=== PATIENT | male | born 1945 | race Caucasian/White ===

== ENCOUNTER 2021-05-11 14:00 | Outpatient (CLI) | payer MEDICARE, SELFPAY ==
--- NOTE | 2021-05-11 14:14 | XR_ITS ---
WS: [id number] XR hip BI 3-4V wo/w pel [id number] REASON FOR EXAM: OSTEOARTHRITIS FINDINGS: RIGHT HIP: Overall bone density is normal. No focal bony abnormality. Mild/moderate narrowing of the hip joint space with mild osteophytic spurring of the acetabulum with subchondral sclerosis. No soft tissue abnormality. LEFT HIP: Overall bone density is normal. No focal bony abnormality. Mild/moderate narrowing of the hip joint space with mild osteophytic spurring of the acetabulum with subchondral sclerosis. No soft tissue abnormality. XR/XR hip BI 3-4V wo/w pel [id number] IMPRESSION: Mild/moderate changes of osteoarthritis as above.
--- NOTE | 2021-05-11 14:15 | XR_ITS ---
WS: [id number] XR knee RT 3V* [id number] REASON FOR EXAM: PAIN IN RIGHT KNEE FINDINGS: Overall than density is within normal limits. No focal bone lesion. Mild/moderate narrowing of the medial knee joint space with subchondral sclerosis in the subarticular tibia. Bony spurring of the medial femoral condyle likely related to the medial collateral ligament. The lateral knee joint spaces are relatively well-preserved. There is mild narrowing of the patellofemoral joint space with osteophytic spurring of the patellar m argins. Subchondral sclerosis in the patella. No loose body identified. No soft tissue abnormality. XR/XR knee RT 3V* [id number] IMPRESSION: Osteoarthropathy in the right knee most prominently in the medial knee joint sp harjinder.
== END 2021-05-11 14:01 | disposition home or self-care (01) ==
PROVIDERS: PCP Family Medicine; Visit Provider Family Medicine
DX: M25.551 Pain in right hip (principal); M25.561 Pain in right knee; M89.48 Other hypertrophic osteoarthropathy, other site
CPT/HCPCS: 73522; 73562

== ENCOUNTER 2022-07-08 03:00 | Emergency (ER) | payer MEDICARE, OTHER, SELFPAY ==
[2022-07-08 03:03] VITALS: BP 159/81; PULSE 64; RESP 18; TEMP 36.2; O2SAT 96; BMI 32.8
--- NOTE | 2022-07-08 03:08 | CTR_ITS ---
PROCEDURE INFORMATION: Exam: CT Abdomen And Pelvis With Contrast Exam date and time: 07/08/2022 4:18 AM Age: 76 years old Clinical indication: Nausea and vomiting; Abdominal pain; Prior surgery; Surgery type: Prostate seeds; Patient HX: C/O periumbilical pain with n/v. TECHNIQUE: Imaging protocol: Computed tomography of the abdomen and pelvis with contrast. Radiation optimization: All CT scans at this facility use at least one of these dose optimization techniques: automated exposure control; mA and/or kV adjustment per patient size (includes targeted exams where dose is matched to clinical indication); or iterative reconstruction. Contrast material: OMNI 350; Contrast volume: 80 ml; Contrast route: INTRAVENOUS (IV); COMPARISON: No relevant prior studies available. RADIATION DOSE METRICS: Total DLP (mGy-cm): 1006.23 FINDINGS: Lungs: Possible small area of atelectasis or pneumonitis in the lower left lingula. No pleural fluid. Diaphragm: Small hiatal hernia. Liver: Unremarkable. Gallbladder and bile ducts: The gallbladder is partially contracted. No visible gallstones by CT. Ultrasound would be more sensitive for detecting gallstones, if clinically needed. No biliary tree dilation. Pancreas: Unremarkable. Spleen: Unremarkable. Adrenal glands: Unremarkable. Kidneys and ureters: Mild to moderate left perinephric stranding and fluid. There is delayed/decreased concentration of contrast by the left kidney. Mild left hydronephrosis and hydroureter. There is a 3 mm distal left ureteral calculus, about 3 cm from UVJ. No visible/definite intrarenal calculus. Couple of probably benign cysts in both kidneys, largest in the right lower pole measures up to 3.5 cm. No right hydronephrosis or visible right ureteral calculus. Stomach and bowel: No significant bowel distention. There are no CT findings to strongly suggest diverticulitis. Appendix: The appendix is visualized and appears normal. Intraperitoneal space: No free intraperitoneal air, or ascites. Vasculature: Moderate aortic and other vascular calcification. No evidence for abdominal aortic aneurysm. Lymph nodes: No retroperitoneal adenopathy. Urinary bladder: No visible calculus in the urinary bladder. Possibly some mild diffuse urinary bladder wall thickening, with slight indistinctness of the bladder wall. Evaluation is somewhat limited, as the bladder is not well distended. This may be related to the prostate enlargement. While nonspecific, this could also indicate evidence for cystitis. Please correlate clinically. Reproductive: Prostate enlargement with transverse diameter of 4.4 cm. Apparent radiation implants in the prostate gland. Bones/joints: Mild to moderate degenerative/arthritic changes throughout the lumbar spine. Soft tissues: Small umbilical hernia, containing only fat. CT/CT abdomen pelvis w con* [id number] IMPRESSION: 1. 3 mm distal left ureteral calculus, see additional details above. 2. Mild left hydronephrosis and hydroureter. 3. Prostate enlargement and suspected urinary bladder wall thickening, see above details. 4. Normal appendix. 5. No free air or bowel distention. No evidence for bowel obstruction. 6. Small left lower lung opacity, see above. 7. Other findings discussed above. COMMENTS: Consistent with the [employer]'s Incidental Findings Committee white paper (J Am Emma Radiol 2018): Any incidental renal lesion less than 1 cm or classified as too small to characterize, or any incidental cystic renal lesion characterized as simple-appearing, is likely benign. No follow-up imaging is recommended for these lesions per consensus recommendations based on imaging criteria.
[2022-07-08] MEDS: ketorolac 30 mg/mL INJ 15 MG IVP (03:30)
[2022-07-08 03:35] LABS: Basophils # 0.1 10^3/uL (0.0-0.1); Basophils % 0.5 %; Eosinophils # 0.1 10^3/uL (0.0-0.8); Eosinophils % 0.6 %; Hematocrit 46.4 % (42.0-52.0); Hemoglobin 15.5 g/dL (11.7-16.6); Lymphocytes # 1.6 10^3/uL (0.8-4.8); Lymphocytes % 11.8 %; Mean Corpuscular HGB Conc 33.4 g/dL (30.0-36.0); Mean Corpuscular Hemoglobin 31.9 pg (28.0-34.0); Mean Corpuscular Volume 95.5 fl (80-94); Monocytes # 0.9 10^3/uL (0.2-0.9); Monocytes % 6.3 %; Neutrophils # 11.09 10^3/uL (1.8-7.7); Neutrophils % 80.5 %; Nucleated Red Blood Cells % 0 %; Platelet Count 234 10^3/cmm (130-400); Red Blood Count 4.86 10^6/uL (4.1-5.3); Red Cell Distribution Width 14.7 % (12.1-15.1); White Blood Count 13.8 10^3/uL (4.0-10.0)
--- NOTE | 2022-07-08 03:47 | ED_ITS ---
Documented by User: Jasbir Albright DO 07/24/22 13:37 HPI - Abdominal Pain General: Chief Complaint: Abdominal Pain Stated Complaint: abd pain Time Seen by Provider: 07/08/22 03:20 History of Present Illness: 76-year-old male presenting today with flank pain radiating into his groin. Initially with flank pain that is moved to his left lower quadrant pain. He denies nausea or vomiting. Denies diarrhea. He has no prior history of similar. No significant surgical history. He denies dysuria or polyuria. He denies hematuria Review of Systems General: Reports: 10 or more systems reviewed and unremarkable except in HPI and below PFSH ED PFSH: Medical History History of DVT (deep vein thrombosis) Social History (Updated 06/02/22 @ 09:58 by Radha Arellano LPN) Smoking and tobacco status: former smoker Alcohol intake: never Adopted: No Caregiver/support person: No Lives independently: No Household members: spouse Marital status: service: No Current occupational status: retired Sexually active: Yes Current gender identity: Male Physical Exam Const: COMMON NORMALS: no acute distress, patient oriented x3 and alert GENERAL APPEARANCE: cooperative ORIENTATION/CONSCIOUSNESS: Yes awake, Yes oriented to person, Yes oriented to place and Yes oriented to time HENMT: COMMON NORMALS: normocephalic, atraumatic, external ears normal, Normal external nose present and moist oral mucous membranes HEAD & SCALP: normal to inspection, normocephalic and atraumatic NOSE: Normal external nose present GENERAL EAR: hearing grossly impaired EXTERNAL EAR: Yes external ears normal Eye: COMMON NORMALS: Equal, round and reactive pupils present, EOMs intact bilaterally, conjunctivae normal and no scleral icterus GENERAL EYE: appearance normal, both eyes and all related structures EYELID: eyelids normal CONJUNCTIVA: Yes conjunctivae normal SCLERA: sclerae normal PUPIL: Yes Equal, round and reactive pupils present Neck/C-Spine: COMMON NORMALS: full ROM, supple and no JVD GENERAL: Yes normal visual inspection Lymph: LYMPHATIC: no lymphadenopathy noted and no lymphedema noted Chest: COMMONS NORMALS: normal inspection of the chest Resp: COMMON NORMALS: normal respiratory effort, No retractions and No use of accessory muscles Cardio: COMMON NORMALS: no JVD, regular rate and regular rhythm RATE: regular rate RHYTHM: regular rhythm GI: COMMON NORMALS: Normal to inspection, nondistended, normoactive bowel sounds present : COMMON NORMALS: Yes no CVA tenderness BLADDER/KIDNEY EXAM: Yes no CVA tenderness Back/Pelvis: COMMON NORMALS: no CVA tenderness and thoracic and lumbar spine normal to inspection Extremity: COMMON NORMALS: normal to inspection, full ROM and capillary refill normal GENERAL: Yes normal exam except as noted Neuro: COMMON NORMALS: patient oriented x3, CN's II-XII intact bilaterally, moves all extremities, no focal motor deficits, no sensory deficits noted and gait normal SENSORIUM/ORIENTATION: Yes alert, Yes oriented to person, Yes oriented to place and Yes oriented to time Psych: COMMON NORMALS: mental status grossly normal, Normal thought process present, cooperative and normal affect THOUGHT PROCESS: Normal thought process present Skin: COMMON NORMALS: no rashes or lesions noted and no wounds GENERAL SKIN EXAM: no rashes or lesions noted Course Vital Signs: Vital signs: Vital Signs Temperature 97.1 F L 07/08/22 03:03 Pulse Rate 80 07/08/22 06:43 Respiratory Rate 16 07/08/22 06:43 Blood Pressure 120/93 07/08/22 06:43 Pulse Oximetry 95 07/08/22 06:43 Oxygen Delivery Me thod 07/08/22 06:01 MDM - Abdominal Pain Medical Decision Making 76-year-old male presenting today with left flank and abdominal pain. No tenderness is present on abdominal exam. UA with hematuria. CT kub ordered for further evaluation. Patient signed out pending these results. Lab Data : 07/08/22 03:24 07/08/22 03:24 Labs/Radiology: Radiology Impressions Abdomen/Pelvis CT 07/08/22 03:08 IMPRESSION: 1. 3 mm distal left ureteral calculus, see additional details above. 2. Mild left hydronephrosis and hydroureter. 3. Prostate enlargement and suspected urinary bladder wall thickening, see above details. 4. Normal appendix. 5. No free air or bowel distention. No evidence for bowel obstruction. 6. Small left lower lung opacity, see above. 7. Other findings discussed above. COMMENTS: Consistent with the [employer]'s Incidental Findings Committee white paper (J Am Emma Radiol 2018): Any incidental renal lesion less than 1 cm or classified as too small to characterize, or any incidental cystic renal lesion characterized as simple-appearing, is likely benign. No follow-up imaging is recommended for these lesions per consensus recommendations based on imaging criteria. Laboratory Results WBC 13.8 10^3/uL (4.0-10.0) H 07/08/22 03:24 RBC 4.86 10^6/uL (4.1-5.3) 07/08/22 03:24 Hgb 15.5 g/dL (11.7-16.6) 07/08/22 03:24 Hct 46.4 % (42.0-52.0) 07/08/22 03:24 MCV 95.5 fl (80-94) H 07/08/22 03:24 MCH 31.9 pg (28.0-34.0) 07/08/22 03:24 MCHC 33.4 g/dL (30.0-36.0) 07/08/22 03:24 RDW 14.7 % (12.1-15.1) 07/08/22 03:24 Plt Count 234 10^3/cmm (130-400) 07/08/22 03:24 MPV 11.0 fL (7.4-10.4) H 07/08/22 03:24 Neut % (Auto) 80.5 % 07/08/22 03:24 Lymph % (Auto) 11.8 % 07/08/22 03:24 [place] % (Auto) 6.3 % 07/08/22 03:24 Eos % (Auto) 0.6 % 07/08/22 03:24 Baso % (Auto) 0.5 % 07/08/22 03:24 Neut # (Auto) 11.09 10^3/uL (1.8-7.7) H 07/08/22 03:24 Lymph # (Auto) 1.6 10^3/uL (0.8-4.8) 07/08/22 03:24 [place] # (Auto) 0.9 10^3/uL (0.2-0.9) 07/08/22 03:24 Eos # (Auto) 0.1 10^3/uL (0.0-0.8) 07/08/22 03:24 Baso # (Auto) 0.1 10^3/uL (0.0-0.1) 07/08/22 03:24 Nucleated RBC % (auto) 0 % 07/08/22 03:24 Nucleated RBCs # 0.0 /100WBC 07/08/22 03:24 Sodium 140 mmol/L (136-145) 07/08/22 03:24 Potassium 4.5 mmol/L (3.5-5.1) 07/08/22 03:24 Chloride 104 mmol/L (98-107) 07/08/22 03:24 Carbon Dioxide 24 mmol/L (22-29) 07/08/22 03:24 Anion Gap 16.5 (5-19) 07/08/22 03:24 BUN 21 mg/dL (8-23) 07/08/22 03:24 Creatinine 1.4 mg/dL (0.7-1.2) H 07/08/22 03:24 GFR Calculation Not Reportable 07/08/22 03:24 Glucose 151 mg/dL (65-115) H 07/08/22 03:24 Calculated Osmolality 296 mOsm/kg (285-295) H 07/08/22 03:24 Calcium 10.2 mg/dL (8.5-10.5) 07/08/22 03:24 Total Bilirubin 0.3 mg/dL (0.15-1.2) 07/08/22 03:24 AST 16 U/L (0-40) 07/08/22 03:24 ALT 11 U/L (0-41) 07/08/22 03:24 Alkaline Phosphatase 98 U/L (40-130) 07/08/22 03:24 Total Protein 7.3 g/dL (6.6-8.7) 07/08/22 03:24 Albumin 4.3 g/dL (3.5-5.2) 07/08/22 03:24 Globulin 3.0 g/dL (1.3-4.6) 07/08/22 03:24 Lipase 17 U/L (13-60) 07/08/22 03:24 Urine Color Yellow (Yellow) 07/08/22 03:24 Urine Appearance Clear (CLEAR) 07/08/22 03:24 Urine pH 5 (5-7) 07/08/22 03:24 Ur Specific [place] 1.025 (1.005-1.030) 07/08/22 03:24 Urine Protein Neg (Negative) 07/08/22 03:24 Urine Glucose (UA) Norm (Normal) 07/08/22 03:24 Urine Ketones Negative (Negative) 07/08/22 03:24 Urine Blood 2+ (Negative) H 07/08/22 03:24 Urine Nitrate Negative (Negative) 07/08/22 03:24 Urine Bilirubin Neg (Negative) 07/08/22 03:24 Urine Urobilinogen Norm mg/dL (Negative) 07/08/22 03:24 Ur Leukocyte Esterase Negative (Negative) 07/08/22 03:24 Urine RBC 5-10 /hpf (0-2) H 07/08/22 03:24 Urine WBC None /hpf (0-5) 07/08/22 03:24 Ur Squamous Epith Cells 0-4 /hpf (0-5) H 07/08/22 03:24 Amorphous Sediment 1+ /hpf 07/08/22 03:24 Urine Bacteria None /hpf (NONE) 07/08/22 03:24 Urine Mucus 1+ /hpf 07/08/22 03:24 Discharge Plan Discharge Patient Disposition: Home Clinical Impression: Left nephrolithiasis Condition: Stable Prescriptions: New hydrocodone-acetaminophen 5-325 mg tablet 1 tab PO Q6H PRN (Reason: pain) Qty: 20 0RF tamsulosin 0.4 mg capsule 0.4 mg PO DAILY Qty: 10 0RF ondansetron HCl 4 mg tablet 4 mg PO Q6H PRN (Reason: nausea and vomiting) Qty: 20 0RF No Action lisinopril 20 mg tablet 20 mg PO DAILY simvastatin 20 mg tablet 20 mg PO DAILY cyclobenzaprine 10 mg tablet 10 mg PO TID PRN Xarelto 20 mg tablet 20 mg PO DAILY Qty: 90 3RF Rx Instructions: must administer with evening meal Discharge Orders: Discharge ED (Routine); Ordered 07/08/22 Ordered By: Ridge Young Referrals: Penny Tamayo MD [Primary Care Provider] - Discharge Diet: Usual diet Discharge Activity: Increase activity as tolerated Patient Instructions: Opioid Safety, Pain Management Activity Restrictions/Additional Instructions: transaction manager will make arrangements for you follow-up with urology. Strain urine to collect stone and submit for pathology if collected. If pain becomes uncontrollable return to the emergency room. Coding Level of Care Code ED Fitness Teacher for Chg Fwd Exam Comprehensive Documented by User: Ridge Young DO 07/08/22 06:25 HPI - Abdominal Pain General: Chief Complaint: Abdominal Pain Stated Complaint: abd pain Time Seen by Provider: 07/08/22 03:20 [facility] ED PFSH: Medical History History of DVT (deep vein thrombosis) Social History (Updated 06/02/22 @ 09:58 by Radha Arellano LPN) Smoking and tobacco status: former smoker Alcohol intake: never Adopted: No Caregiver/support person: No Lives independently: No Household members: spouse Marital status: service: No Current occupational status: retired Sexually active: Yes Current gender identity: Male Course Vital Signs: Vital signs: Vital Signs Temperature 97.1 F L 07/08/22 03:03 Pulse Rate 80 07/08/22 06:43 Respiratory Rate 16 07/08/22 06:43 Blood Pressure 120/93 07/08/22 06:43 Pulse Oximetry 95 07/08/22 06:43 Oxygen Delivery Me thod 07/08/22 06:01 MDM - Abdominal Pain Medical Decision Making 76-year-old male presenting today with left flank and abdominal pain. No tenderness is present on abdominal exam. UA with hematuria. CT kub ordered for further evaluation. Patient signed out pending these results. Care assumed at change of shift. 3 mm distal stone on the left. Patient prescribed hydrocodone and Zofran and tamsulosin. Strain urine to collect stone for pathology follow-up with urology. Return to the ER if pain poorly controll ed. Medical Records I reviewed the patient's medical records. Lab Data I reviewed the patient's lab results. : 07/08/22 03:24 07/08/22 03:24 Labs/Radiology: Radiology Impressions Abdomen/Pelvis CT 07/08/22 03:08
[2022-07-08 03:53] LABS: Alanine Aminotransferase 11 U/L (0-41); Albumin Level 4.3 g/dL (3.5-5.2); Alkaline Phosphatase 98 U/L (40-130); Anion Gap 16.5 (5-19); Aspartate Amino Transferase 16 U/L (0-40); Blood Urea Nitrogen 21 mg/dL (8-23); Calcium 10.2 mg/dL (8.5-10.5); Carbon Dioxide 24 mmol/L (22-29); Chloride 104 mmol/L (98-107); Glucose 151 mg/dL (65-115); Lipase 17 U/L (13-60); Osmolality Calculated 296 mOsm/kg (285-295); Potassium 4.5 mmol/L (3.5-5.1); Sodium 140 mmol/L (136-145); Total Bilirubin 0.3 mg/dL (0.15-1.2); Total Protein 7.3 g/dL (6.6-8.7)
[2022-07-08 04:01] LABS: Glucose Urine UA Norm (Normal); Ketones Urine Negative (Negative); Protein Urine Neg (Negative); Specific Gravity, Urine 1.025 (1.005-1.030); Urine Appearance Clear (CLEAR); Urine Color Yellow (Yellow); pH Urine 5 (5-7)
[2022-07-08 04:02] LABS: Add Urine Microscopic? YES; Bilirubin Urine Neg (Negative); Blood Urine 2+ (Negative); Leukocyte Esterase Urine Negative (Negative); Nitrate Urine Negative (Negative); Urobilinogen Urine Norm (Negative)
[2022-07-08 04:05] LABS: Add Urine Culture? No; Amorphous Sediment Urine 1+ /hpf; Mucus Urine 1+ /hpf; Squamous Epithelial Cell Urine 0-4 /hpf (0-5)
[2022-07-08] MEDS: iohexol 350 mg/mL 100 mL Btl IV (04:21)
[2022-07-08 05:28] VITALS: BP 137/75; PULSE 76; RESP 18; O2SAT 96
[2022-07-08 06:01] VITALS: PULSE 62; RESP 16; O2SAT 94
[2022-07-08 06:43] VITALS: BP 120/93; PULSE 80; RESP 16; O2SAT 95
--- NOTE | 2022-07-08 10:28 | DCPLANNER ---
Addendum entered by Yuly Mcdaniel 07/11/22 09:24: manager study received the following message from the urology clinic: Pt. has an appt with Urologist in Monday-will keep that appt. Original Note: manager study had message to schedule a follow up appointment for patient with urology. manager study sent patients information to the front office staff at urololgy. Patients information will be printed and reviewed. Clinic will call patient with appointment information.
== END 2022-07-08 06:46 | disposition home or self-care (01) ==
PROVIDERS: Emergency Medicine; Emergency Provider Family Medicine; PCP Family Medicine
DX: N20.0 Calculus of kidney (principal)
CPT/HCPCS: 74177; 80053; 81001; 83690; 85025; 96374; 99285; J1885; Q9967

== ENCOUNTER 2024-07-05 09:52 | Outpatient (CLI) | payer MEDICARE, OTHER, SELFPAY ==
--- NOTE | 2024-07-05 09:57 | XR_ITS ---
WS: [id number] Right elbow, 3 views, 07/05/2024 Clinical Data: HIT R ELBOW HARD ON CONCRETE/INJURY Comparison: None. Findings: No fractures or dislocations are seen. The radial head is normal. There is soft tissue swelling over the olecranon. XR/XR elbow RT min 3V* [id number] Impression: 1. No right elbow fracture. 2. Soft tissue swelling over the olecranon.
== END 2024-07-05 09:53 | disposition home or self-care (01) ==
LOC: RAD 09:53
PROVIDERS: PCP Registered Nurse; Visit Provider Family Medicine
DX: S59.901A Unspecified injury of right elbow, initial encounter (principal); M25.422 Effusion, left elbow; X58.XXXA Exposure to other specified factors, initial encounter
CPT/HCPCS: 73080

== ENCOUNTER 2025-04-15 07:47 | Outpatient (CLI) | payer MEDICARE, OTHER, SELFPAY ==
--- NOTE | 2025-04-15 07:53 | CT_ITS ---
WS: [id number] CT chest wo con [id number] HISTORY: SOLITARY PULMONARY NODULE TECHNIQUE: Axial imaging performed through the thorax. Coronal and sagittal reformats are submitted. All CT scans at [facility] use at least one of these dose optimization techniques: automated exposure control; mA and/or kV adjustment per patient size (includes targeted exams where dose is matched to clinical indication); or iterative reconstruction. CONTRAST: None DLP: 593.31 mGy.cm COMPARISON: 03/25/2016 Lungs and central airway: Mild pulmonary hyperinflation. Densely calcified lingular nodule measures 10 mm. A small rim of noncalcified soft tissue. Additional LEFT lower lobe calcified nodule. Mild elevation LEFT hemidiaphragm. No mass. No pneumonia. No endobronchial lesions. Mild bilateral increase in pleural fat. Pleura: Normal. No pleural effusion. Heart and pericardium: Advanced coronary artery calcifications. Heart size is normal. Mediastinum and melissa: No mediastinum or hilar adenopathy. Vessels: Mild atherosclerosis aorta. Chest wall and lower neck: Small subcutaneous 7 mm nodule LEFT anterior thorax is probably a small sebaceous cyst. Nodule has actually decreased in size from 2016. Upper abdomen: Moderate size hiatal hernia. No adrenal mass. Osseous structures: Increase in thoracic kyphosis. Disc spaces are narrowed. CT/CT chest wo con [id number] IMPRESSION: 1. Densely calcified lingular nodule measures 10 mm. Consistent with a benign granuloma. There are a few additional calcified granulomata. 2. Mild pulmonary hyperexpansion and emphysema. 3. Slightly elevated LEFT hemidiaphragm. 4. No adenopathy. 5. Coronary artery atherosclerosis.
== END 2025-04-15 07:48 | disposition home or self-care (01) ==
LOC: RAD 07:48
PROVIDERS: PCP Nurse Practitioner Family; Visit Provider Nurse Practitioner Family
DX: R91.8 Other nonspecific abnormal finding of lung field (principal); J84.10 Pulmonary fibrosis, unspecified; J43.9 Emphysema, unspecified; I25.10 Atherosclerotic heart disease of native coronary artery without angina pectoris; M79.89 Other specified soft tissue disorders; I70.0 Atherosclerosis of aorta; R93.89 Abnormal findings on diagnostic imaging of other specified body structures; K44.9 Diaphragmatic hernia without obstruction or gangrene; M40.294 Other kyphosis, thoracic region
CPT/HCPCS: 71250